=== PATIENT | male | born 1960 | race Two or more races ===

== ENCOUNTER 2020-01-25 08:11 | Day surgery (SDC) | payer OTHER ==
[2020-01-25] MEDS ORDERED: EPINEPHRINE (1:1000) 1 MG/ML AMPUL ONE ×2 (10:31→12:25)
[2020-01-25] MEDS ORDERED: MORPHINE SULFATE/PF 10 MG/10ML (1MG/ML) AMPUL ONE (10:32)
[2020-01-25] MEDS ORDERED: BUPIVACAINE MPF 0.5% W/EPI INJ 30 ML VIAL ONE (10:33)
== END 2020-01-25 14:30 | disposition home or self-care (01) ==
LOC: DS 08:11
PROVIDERS: ATTEND Orthopaedic Surgery
DX: M23.222 Derangement of posterior horn of medial meniscus due to old tear or injury, left knee (principal); M94.262 Chondromalacia, left knee
CPT/HCPCS: 88304-TC; 88311-TC; A4217; A6253; J0171; J0690; J1100; J2274; J2405; J2704; J3490